=== PATIENT | female | born 1990 | race Caucasian/White ===

== ENCOUNTER → 2025-01-12 14:12 | Outpatient (CLI) | payer OTHER, SELFPAY ==
--- NOTE | 2025-01-12 14:17 | DI.US.S_ITS ---
PROCEDURE: US OB <= 14 WEEKS FETUS
== END ==
LOC: US 14:15
PROVIDERS: PCP Advanced Practice Midwife; Referring Provider Advanced Practice Midwife; Visit Provider Advanced Practice Midwife
DX: O46.91 Antepartum hemorrhage, unspecified, first trimester (principal); Z3A.01 Less than 8 weeks gestation of pregnancy
CPT/HCPCS: 76801; 76817